=== PATIENT | female | born 1930 | race Caucasian/White ===

== ENCOUNTER → 2016-08-11 | Outpatient (CLI) | payer MEDICARE, OTHER ==
[~2016-08-11] MED LIST: ANTIVERT 25MG25 MG PO; ASPIRIN 81M81 MG/TA2 PO; CARDIZEM 90MG T90 MG PO; CARDIZEM CD240 MG PO; CARDIZEM SR 60M60 MG PO; CEFTIN500 MG PO; COUMADIN 6MG6 MG/TAB PO; FERROUS SU325 MG/TAB PO; FOLIC ACID PO; FOSAMAX 70MG TA70 MG PO; HCTZ 25MG25 MG PO; PRAVACHOL 20MG20 MG PO; PRAVACHOL 40MG40 MG PO; PRAVACHOL10 MG PO; PREDNISONE10 MG PO; PREDNISONE20 MG PO; TIAZAC240 MG PO; TIMOLOL OPHTHALMIC OP; TIMOPTIC OCUDOSE0.5% OP; VITAMIN C1 TAB PO; XALATAN EYE DROPS OU; XARELTO20 MG PO; ZOFRAN ODT4 MG PO
== END ==
LOC: COL.RAD 13:17
DX: N28.1 Cyst of kidney, acquired (principal); M54.5 Low back pain; Z87.440 Personal history of urinary (tract) infections

== ENCOUNTER → 2016-12-16 | Outpatient (CLI) | payer MEDICARE, OTHER | LOC: ZCOL.LAB 11:51 | DX: I48.91 Unspecified atrial fibrillation (principal) ==

== ENCOUNTER → 2017-01-03 | Outpatient (CLI) | payer MEDICARE, OTHER | LOC: COL.VAS 10:52 | DX: I48.91 Unspecified atrial fibrillation (principal); I34.0 Nonrheumatic mitral (valve) insufficiency; I50.32 Chronic diastolic (congestive) heart failure ==

== ENCOUNTER → 2017-07-19 | Outpatient (CLI) | payer MEDICARE, OTHER | LOC: COL.RAD 10:10 | DX: N28.1 Cyst of kidney, acquired (principal) ==

== ENCOUNTER → 2019-10-10 | Outpatient (CLI) | payer MEDICARE, OTHER | LOC: MC.RAD 09:52 | DX: Z12.31 Encounter for screening mammogram for malignant neoplasm of breast (principal) ==